=== PATIENT | female | born 1995 | race Caucasian/White ===

== ENCOUNTER 2016-12-07 08:29 | Day surgery (SDC) | payer BC, OTHER ==
[2016-12-02 16:07] LABS: WBC (NOT ORDERED) (RFLEX) 0 (0-5)
[2016-12-02 17:39] LABS: ASCORBIC ACID (UR NOT ORDER) 40 (NEG); BILIRUBIN, URINE NEGATIVE (NEG); KETONE, URINE NEGATIVE (NEG); LEUKOCYTE ESTERASE(NOT OR NEG (NEG)
[2016-12-02 17:45] LABS: BUN (BLOOD UREA NITROGEN) 8 MG/DL (6-23); CHLORIDE, SERUM 114 MMOL/L (96-112); CO2 (CARBON DIOXIDE) 23 MMOL/L (24-34); CREATININE 0.69 MG/DL (0.55-1.02); GFR AFRICAN AMERICAN 144 ML/MIN (>=60); GFR NON AFRICAN AMERICAN 124 ML/MIN (>=60); GLUCOSE, SERUM 77 MG/DL (60-99); POTASSIUM, SERUM 4.5 MMOL/L (3.5-5.3); SODIUM, SERUM 144 MMOL/L (135-148)
--- NOTE | ~2016-12-07 | OP ---
Record Of Operation [place] [id number] [facility] [place]. [address] NAME: LUIS A DIEGO : 89 STATUS : [facility]#: [id number] AGE: 21 ADM/REG DATE : 12/07/16 MR#: [id number] REPORT SERV DATE: 12/07/16 DICTATED BY: TED EAST DATE: 12/07/16 REPORT STATUS : Draft TRANSCRIBED BY: MODL DATE: 12/07/16 DATE OF PROCEDURE: 12/07/2016 SURGEON: Ted East MD. TITLE OF OPERATION: Cystourethroscopy exam under anesthesia. PREOPERATIVE DIAGNOSIS: Urinary retention. POSTOPERATIVE DIAGNOSIS: Urinary retention. INDICATIONS: Ms. Diego is a 21-year-old female with urinary retention after multiple major back surgery for scoliosis. She has been told she has a prolapsed urethra. She has not tolerated examination in the clinic by another urologist. She is here for second opinion and exam under anesthesia. ANESTHESIA: General. COMPLICATIONS: None. IMPLANTS: None. SPECIMENS: None. NARRATIVE: The patient was brought to the operating room, identified by wristband. General anesthesia was induced, and Ancef was given for preoperative antibiotics. She was placed in dorsal lithotomy position, prepped and draped in sterile fashion. Examination of external genitalia revealed a normal urethra with no pelvic organ prolapse. The urethra was not prolapse as was previously described to her. A 22-Albanian cystoscope was placed into her urethra and into her bladder. This fluid into her urethra easily there was no obstruction. The bladder was inspected. There were no abnormalities within the bladder itself. It was very poor consistent with urinary retention. The bladder was drained. The patient was awoken from anesthesia and transferred to the recovery room in stable condition. We will plan on InterStim stage I in the near future. ALTHEA/PONCE Ted East MD / [id number] CC: Ted East MD Record Of Operation [address] [id number] [facility] [place]. [address] NAME: LUIS A DIEGO : 89 STATUS : [facility]#: [id number] AGE: 21 ADM/REG DATE : 12/07/16 MR#: [id number] REPORT SERV DATE: 12/07/16 DICTATED BY: TED EAST DATE: 12/07/16 REPORT STATUS : Draft TRANSCRIBED BY: MODL DATE: 12/07/16 Alyse Salinas M.D.
[~2016-12-07 08:29] MED LIST: BETHAN25B PO; EFFEXXR75 PO; FOLIC PO; LEVOTHYROXIN100 MCG PO; LOP50 PO; LYRICA75 PO; QVAR80 MCG INH; ROXICODONE30 MG PO; SINGULAIR1 PO; TROKENDI PO; VENTOLIN HFA INH; ZANAFLEX 4 MG TA4 MG PO; ZOFRAN8 PO
[2016-12-16] MEDS ORDERED: COMP10B PO (08:58)
== END 2016-12-07 15:38 | disposition home or self-care (01) ==
LOC: SDC 08:29
PROVIDERS: Urology
PROC: 0TJB8ZZ Inspection of Bladder, Via Natural or Artificial Opening Endoscopic (ICD-10-PCS; principal; 2016-12-07 10:00)
DX: R33.9 Retention of urine, unspecified (principal); M41.9 Scoliosis, unspecified; M79.7 Fibromyalgia; K21.9 Gastro-esophageal reflux disease without esophagitis; E03.9 Hypothyroidism, unspecified; F41.9 Anxiety disorder, unspecified; F32.9 Major depressive disorder, single episode, unspecified; F17.210 Nicotine dependence, cigarettes, uncomplicated; J45.909 Unspecified asthma, uncomplicated; Z88.5 Allergy status to narcotic agent; Z79.51 Long term (current) use of inhaled steroids; Z79.899 Other long term (current) drug therapy; Z79.891 Long term (current) use of opiate analgesic; Z90.49 Acquired absence of other specified parts of digestive tract; Z98.1 Arthrodesis status
CPT/HCPCS: 80048; 81001; 84703; 93005; A9270-GY; J0690; J2250; J2405; J3010

== ENCOUNTER 2016-12-20 07:00 | Day surgery (SDC) | payer BC, OTHER ==
[2016-12-16 15:39] LABS: ASCORBIC ACID (UR NOT ORDER) 40 (NEG); BILIRUBIN, URINE NEGATIVE (NEG); KETONE, URINE NEGATIVE (NEG); LEUKOCYTE ESTERASE(NOT OR NEG (NEG); WBC (NOT ORDERED) (RFLEX) 1 (0-5)
[2016-12-16 15:48] LABS: BUN (BLOOD UREA NITROGEN) 6 MG/DL (6-23); CALCIUM, SERUM 8.8 MG/DL (8.5-10.4); CHLORIDE, SERUM 109 MMOL/L (96-112); CO2 (CARBON DIOXIDE) 25 MMOL/L (24-34); CREATININE 0.79 MG/DL (0.55-1.02); GFR AFRICAN AMERICAN 124 ML/MIN (>=60); GFR NON AFRICAN AMERICAN 107 ML/MIN (>=60); POTASSIUM, SERUM 3.6 MMOL/L (3.5-5.3); SODIUM, SERUM 140 MMOL/L (135-148)
[2016-12-16 15:50] LABS: GLUCOSE, SERUM 93 MG/DL (60-99)
--- NOTE | ~2016-12-20 | OP ---
Record Of Operation [facility] [address] [place]. [address] NAME: LUIS A DIEGO : 95 STATUS : [facility]#: [id number] AGE: 21 ADM/REG DATE : 12/20/16 MR#: [id number] REPORT SERV DATE: 12/21/16 DICTATED BY: TED EAST DATE: 12/20/16 REPORT STATUS : Draft TRANSCRIBED BY: PONCE DATE: 12/20/16 DATE OF PROCEDURE: 12/20/2016 TYPE OF OPERATION: Stage I InterStim lead placement. PREOPERATIVE DIAGNOSIS: Nonobstructive urinary retention. POSTOPERATIVE DIAGNOSIS: Nonobstructive urinary retention. INDICATIONS: Ms. Diego is a 21-year-old female with history of multiple back surgeries. She has urinary retention. She voids via Valsalva voiding. She has been counseled regarding her risks and options. She is here for InterStim stage I. ANESTHESIA: General. COMPLICATIONS: None. IMPLANTS: InterStim curved lead. SPECIMENS: None. NARRATIVE: The patient was brought to the operating room, identified by wristband. General anesthesia without paralytic was administered and vancomycin and gentamicin were given for preoperative antibiotics. She was placed in the supine position and prepped and draped in sterile fashion. Fluoroscopy was performed. X-rays were taken in the AP and lateral positions. The third sacral foramen was identified. A needle was placed through her skin into the third sacral foramen in the more superomedial position. The needle was tested. There were good anal berhane and great toe reflex. Therefore, the inner cannula of the needle was removed and a bidirectional guide was placed through the needle. The needle was removed. An incision was made. A dilating sheath was placed over the guide into the proper position. A curved InterStim lead was then placed in the correct position through the introducer sheath. The four electrodes were tested and all had good anal berhane and toe response at voltages less than 1. Therefore, the sheath was removed and the lead was deployed with the preplaced tines. The lead was then tunneled over to a subcutaneous pocket made in the right buttocks cheek. The lead bowling ball molder was placed. It was secured in place with the screwdriver. The boot was placed over it and sutured in place with 2-0 Prolene ties. The lead was then extended up into the upper right quadrant of the back. The wound was irrigated clear with antibiotic-infused solution. Skin was closed with a 4-0 Monocryl suture. Dermabond dressing was placed. The lead placement site was closed with an interrupted 4-0 Monocryl suture. Dermabond dressing was placed here as well. The lead was then connected to the blue tooth device. She was awoken from anesthesia and transferred to recovery room in stable condition. There were no complications. She will meet with the [facility] prior to discharge to go for programming. There were no complications. Record Of Operation [id number] [place]. [address] NAME: LUIS A DIEGO : 95 STATUS : [facility]#: [id number] AGE: 21 ADM/REG DATE : 12/20/16 MR#: [id number] REPORT SERV DATE: 12/21/16 DICTATED BY: TED EAST DATE: 12/20/16 REPORT STATUS : Draft TRANSCRIBED BY: PONCE DATE: 12/20/16 ALTHEA/PONCE Ted East MD / [id number] CC: MD Alyse Clark M.D.
[~2016-12-20 07:00] MED LIST changes: +COMP10B PO
== END 2016-12-20 12:38 | disposition home or self-care (01) ==
LOC: SDC 07:00
PROVIDERS: Urology
PROC: 01HY3MZ Insertion of Neurostimulator Lead into Peripheral Nerve, Percutaneous Approach (ICD-10-PCS; principal; 2016-12-20 09:00)
DX: R33.8 Other retention of urine (principal); F41.9 Anxiety disorder, unspecified; K21.9 Gastro-esophageal reflux disease without esophagitis; F17.210 Nicotine dependence, cigarettes, uncomplicated; J45.909 Unspecified asthma, uncomplicated; M79.7 Fibromyalgia; F31.9 Bipolar disorder, unspecified; K44.9 Diaphragmatic hernia without obstruction or gangrene; R00.0 Tachycardia, unspecified; G43.909 Migraine, unspecified, not intractable, without status migrainosus; R56.9 Unspecified convulsions; Z98.890 Other specified postprocedural states; Z90.49 Acquired absence of other specified parts of digestive tract; Z88.5 Allergy status to narcotic agent; Z88.2 Allergy status to sulfonamides; Z90.89 Acquired absence of other organs; Z79.899 Other long term (current) drug therapy; Z98.1 Arthrodesis status; Z79.891 Long term (current) use of opiate analgesic
CPT/HCPCS: 76000; 80048; 81001; 84703; A9270-GY; C1778; J0330; J1170; J1580; J2250; J2405; J2710; J3010; J3370

== ENCOUNTER 2016-12-28 06:29 | Day surgery (SDC) | payer BC, OTHER ==
--- NOTE | ~2016-12-28 | OP ---
Record Of Operation [facility] [address] [place]. [address] NAME: LUIS A DIEGO : 89 STATUS : [facility] PAT#: [id number] AGE: 21 ADM/REG DATE : 12/28/16 MR#: [id number] REPORT SERV DATE: 12/28/16 DICTATED BY: TED EAST DATE: 12/28/16 REPORT STATUS : Draft TRANSCRIBED BY: PONCE DATE: 12/28/16 DATE OF PROCEDURE: 12/28/2016 TITLE OF OPERATION: InterStim battery placement. POSTPROCEDURE DIAGNOSIS: Nonobstructive urinary retention. POSTOPERATIVE DIAGNOSIS: Nonobstructive urinary retention. INDICATIONS: Ms Diego is a 21-year-old female with nonobstructive urinary retention. She underwent stage I InterStim last week and it has worked well. She is here for battery placement. ANESTHESIA: General. COMPLICATIONS: None. IMPLANTS: InterStim battery. NARRATIVE: The patient was brought to the operating room, identified by a wristband. General anesthesia was induced, and gentamicin and vancomycin were given for preoperative antibiotics. She was placed in the prone position, and prepped and draped in sterile fashion. A previous incision was made over her right buttock, it was opened with a hemostat. The lead was identified. It was delivered out of the wound. The Prolene sutures were cut with a knife. The lead extension was removed using the wrench. The lead extension was cut and removed from the body sterilely. The boot was removed and discarded. The electrode was then placed into the battery and secured into place with a wrench. The wound was irrigated copiously with antibiotic-infused solution. The battery was placed into the wound. The impedance of the battery was tested, and found to be normal. Subcutaneous tissues were closed with a 3-0 Vicryl suture in interrupted fashion. Skin was closed with 4 0 Monocryl suture in a subcuticular fashion, and Dermabond dressing was placed. The patient was awoken from anesthesia, and transferred to the recovery room in stable condition. I will see her back in two to three weeks to check on her. ALTHEA/PONCE Ted East MD / [id number] CC: MD Alyse Clark M.D.
== END 2016-12-28 17:16 | disposition home or self-care (01) ==
LOC: SDC 06:29
PROVIDERS: Urology
PROC: 0JH70BZ Insertion of Single Array Stimulator Generator into Back Subcutaneous Tissue and Fascia, Open Approach (ICD-10-PCS; principal; 2016-12-28 07:45)
DX: R33.9 Retention of urine, unspecified (principal); G40.909 Epilepsy, unspecified, not intractable, without status epilepticus; E03.9 Hypothyroidism, unspecified; J45.909 Unspecified asthma, uncomplicated; F41.9 Anxiety disorder, unspecified; K21.9 Gastro-esophageal reflux disease without esophagitis; F32.9 Major depressive disorder, single episode, unspecified; F17.210 Nicotine dependence, cigarettes, uncomplicated; Z79.899 Other long term (current) drug therapy; Z88.5 Allergy status to narcotic agent; Z90.49 Acquired absence of other specified parts of digestive tract; Z98.890 Other specified postprocedural states
CPT/HCPCS: 84703; A9270-GY; C1767; C1787; J1580; J2250; J2405; J3010; J3370